=== PATIENT | female | born 1950 | race Caucasian/White ===

== ENCOUNTER 2024-09-13 10:04 | Day surgery (SDC) | payer MEDICARE, OTHER ==
[2024-09-12 08:33] VITALS: BMI 29.8
[2024-09-13 11:24] LABS: Hematocrit 41.4 % (34.9-44.5); Hemoglobin 14.4 g/dL (12.0-15.5)
[2024-09-13 11:41] LABS: Anion Gap 15 mmol/L (10-20); BUN (Urea Nitrogen) 20 mg/dL (9.8-20.1); Calc. Creatinine Clearance 48 mL/min (70-130); Calcium 10.1 mg/dL (7.8-10.44); Carbon Dioxide 30 mmol/L (23-31); Chloride 100 mmol/L (98-107); Glucose 106 mg/dL (83-110); Potassium 4.5 mmol/L (3.5-5.1); Sodium 140 mmol/L (136-145)
[2024-09-13] MEDS ORDERED: Lidocaine 1% w/Epinephrine 1:200K 30 ML VIAL ONE (11:47)
[2024-09-13] MEDS ORDERED: PROPOFOL 0 ML ONE (12:24)
[2024-09-13] MEDS ORDERED: Sevoflurane 250 ML INH ANEST BOTTLE ONE (13:21)
[2024-09-13] MEDS ORDERED: Ondansetron PF 4 MG/2 ML Vial ONE (14:11)
[2024-09-13] MEDS ORDERED: PROPOFOL 20 ML ONE (14:35)
[2024-09-13] MEDS ORDERED: Racepinephrine 2.25% 0.5 ML NEB ONE (15:11)
[2024-09-13] MEDS ORDERED: HYDROcodone/Acetaminophen 5/325 mg Tablet ONE (15:56)
== END 2024-09-13 16:13 | disposition home or self-care (01) ==
LOC: CSHSDC 10:04
PROVIDERS: ATTEND Specialist
PROC: 0CBB0ZZ Excision of Right Parotid Duct, Open Approach (ICD-10-PCS; principal; 2024-09-13)
DX: D11.0 Benign neoplasm of parotid gland (principal); E78.00 Pure hypercholesterolemia, unspecified; J30.0 Vasomotor rhinitis; J34.3 Hypertrophy of nasal turbinates; J34.89 Other specified disorders of nose and nasal sinuses; R09.89 Other specified symptoms and signs involving the circulatory and respiratory systems; E11.9 Type 2 diabetes mellitus without complications; I10 Essential (primary) hypertension; Z79.899 Other long term (current) drug therapy; Z88.2 Allergy status to sulfonamides
CPT/HCPCS: 42420; 80048; 85014; 85018; 93005; A6258; J1100; J2405; J2704; J3010; 36415; 88305; 93010